=== PATIENT | female | born 1970 | race African-American/Black ===

== ENCOUNTER 2016-07-29 19:32 | Inpatient (IN) | payer OTHER ==
--- NOTE | ~2016-07-29 | DS ---
Unit #: [id number] #: [id number] Patient: SOFIA OSWALD [id number] [facility] [address] [place] [address] [id number] MR#: [id number] NAME: SOFIA OSWALD ROOM: [facility] Age: 46 Sex: F Admission Date: 07/29/2016 : 1970 Discharge Date: 08/02/2016 Attending Physician: Alfa Lyn M.D. Primary Care Physician: Pacheco Felder Sr., M.D. DISCHARGE SUMMARY REASON FOR ADMISSION The patient is a 46-year-old female, admitted with increasing symptoms of depression and hopelessness. HOSPITAL COURSE The patient was admitted to the [facility] and placed on suicide precautions. Given the history of chronic pain, she was begun on Cymbalta 30 mg daily which she tolerated without complaint. She was also continued on Trazodone 100 mg at h.s. and home medications including Lortab and Xanax were continued. Trazodone 100 mg at h.s. was added on a p.r.n. basis for insomnia. The patient did report some symptoms of psychosis feeling as though she was being followed, and was therefore, begun on Abilify 2 mg daily in addition to her other prescribed psychotropic medications. By 08/02/2016, the patient appeared much brighter. She denied suicidal ideation and was in agreement and plan for followup through the auspices of [facility] mental health resources and the intensive outpatient program provided by this facility. As per her request, discharge was ordered. FINAL DIAGNOSES Major depressive disorder, severe, recurrent with psychotic features; chronic pain. DISPOSITION ON DISCHARGE The patient is discharged on the following medications, alprazolam 0.5 mg once daily for anxiety, Lortab 7.5/325 one tablet b.i.d. for chronic pain, Cymbalta 30 mg daily for depression, Desyrel 100 mg at h.s. p.r.n. insomnia, Abilify 2 mg nightly for psychosis. DISCHARGE INSTRUCTIONS No dietary or physical restrictions were placed on the patient at the time of discharge. FOLLOWUP Follow up will take place through the auspices of [facility] health [facility] in the intensive outpatient program provided by this facility. PROGNOSIS The patient's prognosis is considered fair. Dictated by... Alfa Lyn M.D. Unit #: [id number] #: [id number] Patient: ODALYS OSWADLMAGGY HER/lynnette TD: 08/03/2016 02:27 JOB #: [id number] DISCHARGE SUMMARY Page 1 of 1 X Alfa Lyn MD X DISCHARGE SUMMARY
--- NOTE | ~2016-07-29 | PN ---
Unit #: [id number] #: [id number] Patient: SOFIA OSWALD [id number] [facility] [address] [place] [address] [id number] I MR#: [id number] NAME: SOFIA OSWALD [facility]OM: [facility] Age: 46 Sex: F Admission Date: 07/29/2016 : 1970 Attending Physician: Alfa Lyn M.D. Admitting Physician: Alfa Lyn M.D. Primary Care Physician: Pacheco Felder Sr., M.D. [facility] PROGRESS NOTES DATE 08/01/2016 DISCUSSION The patient remains seclusive to room. She states that she is "fearful that she is being followed" though was reporting reduction in suicidal ideation. I will add Abilify 2 mg daily to address the patient's complaints of psychosis. The patient is pushing for discharge as early as tomorrow and should be a good candidate for participation in the intensive outpatient program provided by this facility. Dictated by... Alfa Lyn M.D. CB/magalys TD: 08/01/2016 14:28 JOB #: [id number] [facility] PROGRESS NOTES Page 1 of 1 X Alfa Lyn MD X PROGRESS NOTE
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
--- NOTE | ~2016-07-29 | PN ---
Unit #: [id number] #: [id number] Patient: SOFIA OSWALD [id number] [facility] [address] [place] [address] [id number] I MR#: [id number] NAME: SOFIA OSWALD ROOM: P110 Age: 46 Sex: F Admission Date: 07/29/2016 : 1970 Attending Physician: Alfa Lyn M.D. Admitting Physician: Alfa Lyn M.D. Primary Care Physician: Pacheco Felder Sr., M.D. [facility] PROGRESS NOTES DATE 07/31/2016 DISCUSSION The patient has not yet been transferred to the [facility], but we continue to endeavor to do so. She remains dysphoric, flat, and seclusive to room but did tolerate initiation of Cymbalta without complaint. She continues to endorse positive suicidal ideation. Dictated by... Alfa Lyn M.D. CB/magalys TD: 07/31/2016 14:18 JOB #: [id number] [facility] PROGRESS NOTES Page 1 of 1 X Alfa Lyn MD X PROGRESS NOTE
--- NOTE | ~2016-07-29 | HP ---
Unit #: [id number] #: [id number] Patient: SOFIA OSWALD [id number] [place] [address] [id number] I MR#: [id number] NAME: SOFIA OSWALD ROOM: P110 Age: 46 Sex: F Admission Date: 07/29/2016 : 1970 Attending Physician: Alfa Lyn M.D. Admitting Physician: Alfa Lyn M.D. Primary Care Physician: Pacheco Felder Sr., M.D. HISTORY AND PHYSICAL HISTORY OF PRESENT ILLNESS Sofia is a 46 year old admitted to [address] [place] [address] with depression and verbalizing wanting to hurt herself. PAST MEDICAL HISTORY High blood pressure PAST SURGICAL HISTORY 1. Hysterectomy 2. Partial thyroidectomy ALLERGIES No known drug allergies. SOCIAL HISTORY She denies cigarettes, alcohol and illicit drug use. FAMILY HISTORY Medically noncontributory. REVIEW OF SYSTEMS CONSTITUTIONAL: No fever or chills. HEENT: Denies any sore throat, ear pain or runny nose. CARDIOVASCULAR: Denies chest pain, irregular heart rhythm or palpitations. CHEST: Denies shortness of breath or cough. No hemoptysis. GASTROINTESTINAL: Denies nausea, vomiting, diarrhea or chronic constipation. ENDOCRINE: Denies history of increased thirst or urination. No recent significant weight loss or gain. GENITOURINARY: Denies dysuria, frequency, or hematuria. SKIN: Denies any rashes. HEMATOLOGIC: Denies history of increased bleeding or bruising. MUSCULOSKELETAL: Denies any hot, swollen joints. No generalized muscle pain. NEUROLOGIC: Denies problems with vision or speech. No frequent, severe headaches. No numbness, tingling or weakness in any extremities. Denies loss of bladder or bowel control. CURRENT MEDICATIONS 1. Cymbalta 30 mg q day 2. Desyrel 100 mg q.h.s. 3. Lortab 7.5 1 tab b.i.d. Unit #: [id number] #: [id number] Patient: SOFIA OSWALD 4. Xanax 0.5 mg q day 5. Milk of Magnesia p.r.n. 6. Maalox p.r.n. 7. Tylenol p.r.n. PHYSICAL EXAMINATION GENERAL: Alert, well-nourished, in no apparent distress. VITAL SIGNS: Blood pressure 140/80, heart rate 70, respirations 16, temperature 98.6. WEIGHT: 180 pounds. HEIGHT: 5'5". SKIN: Warm and dry without rash or lesion. HEENT: Normocephalic. TMs not viewed. Oral and nasal passages clear. Conjunctivae clear. Pupils equal, round and reactive to light and accommodation. Extraocular movements intact. NECK: Supple without lymphadenopathy or thyromegaly. HEART: Regular rate and rhythm without murmur. LUNGS: Clear. ABDOMEN: Soft, nontender. : Not done. EXTREMITIES: No evidence of cyanosis, clubbing or edema. Moves all extremities without focal deficit. NEUROLOGICAL: Grossly within normal limits. Cranial Nerves: II: Visual stovall are intact. III, IV AND : Extraocular movements are intact. Pupils are equal, round and reactive to light. V: Facial sensation is grossly normal. VII: Facial movements and expression are normal. VIII: Auditory acuity grossly intact. IX, X: Uvula is midline. Phonation is normal. XI: Patient shrugs shoulders and turns head normally. XII: Tongue protrudes in the midline. Sensory and Motor Function: Sensory and motor sensation is grossly normal. Motor: moves all extremities well. Coordination: Gait is normal. Deep Tendon Reflexes: Intact. IMPRESSION Psychiatric admission RECOMMENDATIONS PSYCHIATRIC: Per psychiatrist. MEDICAL: I see no contraindications to participating in facility's activities. MEDICAL PROGNOSIS Good. MEDICAL CONDITION Stable. Dictated by... Bettye Reeves P.A.-C. for Jeremy Haro/dayday Unit #: [id number] #: [id number] Patient: SOFIA OSWALD TD: 07/30/2016 23:47 JOB #: [id number] HISTORY AND PHYSICAL Page 1 of 1 X Bettye Reeves HISTORY AND PHYSICAL
[2016-07-30 12:23] LABS: BASOPHIL% 0.5 % (0-2.5); DIFF IND NO; EOSINOPHIL# 0.1 X10e3 (0-0.7); EOSINOPHIL% 0.9 % (0.0-7.0); HEMOGLOBIN 12.7 gm/dL (12.0-16.0); LYMPHOCYTE# 2.3 X10e3 (1.0-3.5); LYMPHOCYTE% 33.2 % (17.0-45.0); MEAN CELL VOLUME 93.2 FL (83-96); MEAN CORPUSCULAR HEMOGLOBIN 30.4 PG (28-34); MEAN CORPUSCULAR HGB CONC 32.7 g/dL (30-36); MEAN PLATELET VOLUME 9.2 FL (6.5-11.5); MONOCYTE# 0.4 X10e3 (0-1.0); MONOCYTE% 5.9 % (3.0-12.0); NEUTROPHIL# 4.1 X10e3 (1.5-7.1); NEUTROPHIL% 59.5 % (40-75); PLATELET COUNT 251 X10e3 (140-420); RED BLOOD COUNT 4.19 X10e (3.90-5.30); RED CELL DISTRIBUTION WIDTH 12.7 % (11.0-15.5); WHITE BLOOD COUNT 6.9 X10e3 (4.0-10.5)
[2016-07-30 12:50] LABS: BILIRUBIN,TOTAL 0.8 mg/dL (0.2-2.0); CALCIUM SERUM 9.4 mg/dL (8.4-10.2); CREATININE SERUM 0.7 mg/dL (0.6-1.4); GLOM FILT RATE Estimated 120.4 mL/min (>60); POTASSIUM 4.3 mmol/L (3.5-5.1); PROTEIN TOTAL SERUM 6.8 g/dL (6.0-8.3)
[2016-07-30 12:52] LABS: THYROID STIMULATING HORMONE 1.16 uIU/ml (0.34-5.60)
[2016-07-30 13:01] LABS: FREE THYROXIN (T4) 0.85 ng/dL (0.58-1.64)
== END 2016-08-02 15:30 | disposition home or self-care (01) | DRG 885 ==
LOC: P2L 23:11 → P1S 23:11 → P2L 07-31 18:18
PROVIDERS: Specialist
DX: F33.3 Major depressive disorder, recurrent, severe with psychotic symptoms (principal); I10 Essential (primary) hypertension; M54.9 Dorsalgia, unspecified; G89.4 Chronic pain syndrome
CPT/HCPCS: 80053; 84439; 84443; 85025